=== PATIENT | female | born 1990 | race Caucasian/White ===

== ENCOUNTER 2019-07-05 16:57 | Emergency (ER) | payer MEDICAID ==
--- NOTE | 2019-07-05 18:13 | ER Document Report ---
ED Medical Screen (RME) - General Chief Complaint: Vaginal Bleeding Stated Complaint: LOW BACK PAIN Time Seen by Provider: 07/05/19 18:08 Mode of Arrival: Ambulatory Information source: Patient Notes: 28-year-old female presented to ED for complaint of diarrhea for dizziness fatigue and sometimes abdominal pain. She has been having abnormal vaginal bleeding for about a year she states she is not bleeding at this time. She was sent over here by her primary care doctor for a hemoglobin of 7.9. She states that the REPROGRAPHICS TECHNICIAN did a hemoglobin yesterday was 7.5. She was instructed to follow-up with her primary care. She states she is having severe dizziness and fatigue at this time. Primary care called and sent patient to the emergency room for evaluation and treatment. I have greeted and performed a rapid initial assessment of this patient. A comprehensive ED assessment and evaluation of the patient, analysis of test results and completion of medical decision making process will be conducted by an additional ED providers. - Related Data Allergies/Adverse Reactions: cephalexin Allergy (Verified 07/05/19 18:06) Past Medical History - Social History Frequency of alcohol use: None Drug Abuse: None Physical Exam - Vital signs Vitals: Temp Pulse Resp BP Pulse Ox 98.8 F 110 H 18 154/92 H 100 07/05/19 16:59 07/05/19 16:59 07/05/19 16:59 07/05/19 16:59 07/05/19 16:59 Course - Vital Signs Vital signs: Temp Pulse Resp BP Pulse Ox 98.8 F 110 H 18 154/92 H 100 07/05/19 18:07 07/05/19 16:59 07/05/19 16:59 07/05/19 16:59 07/05/19 16:59
[2019-07-05 18:47] LABS: AMORPHOUS SEDIMENT,URINE 1+ /HPF; APPEARANCE,URINE TURBID; BILIRUBIN,URINE NEGATIVE (NEGATIVE); COLOR,URINE YELLOW; GLUCOSE, URINE NEGATIVE (NEGATIVE); KETONES,URINE NEGATIVE (NEGATIVE); LEUKOCYTE ESTERASE,URINE TRACE (NEGATIVE); NITRITE,URINE NEGATIVE (NEGATIVE); PROTEIN,URINE 30 mg/dL (NEGATIVE); URINE SPECIFIC GRAVITY 1.026; UROBILINOGEN,URINE NEGATIVE mg/dL (<2.0)
[2019-07-05 18:49] LABS: ABSOLUTE EOSINOPHILS # (AUTO) 0.1 10^3/uL (0.0-0.6); ABSOLUTE LYMPHOCYTES (AUTO) 1.6 10^3/uL (0.5-4.7); ABSOLUTE MONOCYTES (AUTO) 0.3 10^3/uL (0.1-1.4); ABSOLUTE NEUT (AUTO) 4.6 10^3/uL (1.7-8.2); BASOPHILS % (AUTO) 0.4 % (0-2); EOSINOPHILS % (AUTO) 1.6 % (0-6); HEMATOCRIT 24.7 % (36.0-47.0); LYMPHOCYTES % (AUTO) 23.6 % (13-45); MEAN CORPUSCULAR HEMOGLOBIN 18.6 pg (27.0-33.4); MEAN CORPUSCULAR HGB CONC 30.6 g/dL (32.0-36.0); MONOCYTES % (AUTO) 4.4 % (3-13); PLATELET COUNT 298 10^3/uL (150-450); RED BLOOD COUNT 4.08 10^6/uL (3.72-5.28); RED CELL DISTRIBUTION WIDTH 20.5 % (11.5-14.0); TOTAL CELLS COUNTED % (AUTO) 100 %; WHITE BLOOD COUNT 6.6 10^3/uL (4.0-10.5)
[2019-07-05 18:53] LABS: HEMOGLOBIN 7.6 g/dL (12.0-15.5); MEAN CORPUSCULAR VOLUME 61 fl (80-97)
[2019-07-05 19:10] LABS: ANISOCYTOSIS 2+; HYPOCHROMASIA 2+; PLATELET COMMENT ADEQUATE; PLATELET LARGE PRESENT; POIKILOCYTOSIS SLIGHT; POLYCHROMASIA SLIGHT
[2019-07-05 19:53] LABS: ALBUMIN 4.2 g/dL (3.5-5.0); ALKALINE PHOSPHATASE 85 U/L (38-126); ANION GAP 7 (5-19); ASPARTATE AMINO TRANSFERASE 20 U/L (14-36); BILIRUBIN,TOTAL 0.7 mg/dL (0.2-1.3); BLOOD UREA NITROGEN 12 mg/dL (7-20); CALCIUM 9.2 mg/dL (8.4-10.2); CARBON DIOXIDE 29 mmol/L (22-30); CHLORIDE 101 mmol/L (98-107); GLUCOSE 106 mg/dL (75-110); POTASSIUM 4.1 mmol/L (3.6-5.0); TOTAL PROTEIN 7.7 g/dL (6.3-8.2)
[2019-07-05] MEDS ORDERED: NORMAL SALINE 250 ML IV PRN ×2 (20:52)
--- NOTE | 2019-07-05 20:57 | ER Document Report ---
ED GI/ - General Chief Complaint: Vaginal Bleeding Stated Complaint: LOW BACK PAIN Time Seen by Provider: 07/05/19 18:08 Mode of Arrival: Ambulatory Information source: Patient Notes: 28-year-old female presenting for vaginal bleeding and low hemoglobin per her primary care provider. Has had heavy, irregular periods since the of her daughter 1 year ago. Was seen by SALVAGE MACHINE OPERATOR 3 weeks ago, prescribed control, multivitamins, and iron and had transvaginal ultrasound performed which noted a left ovarian cyst. Patient reports that her hemoglobin was low at the SALVAGE MACHINE OPERATOR visit. Hemoglobin continued to also be low at most recent primary care visit who recommended she come to the ER for transfusion today. Patient picked up the control norethindrone yesterday and has only taken 1 dose of medication. Reports her periods have become lab scientist than what they previously were in the last few days. Continues to have nightly heavy bleeding. Is bleeding through a pad or tampon in 2 hours when does have vaginal bleeding, reports occassional small clots. Denies lightheadedness, fevers, chills, dizziness, shortness of breath, chest pain, pain with urination or flank pain. Does note bilateral lower abdominal pain with deep palpation. Per the triage provider she did have dizziness and fatigue. She has a history of hypertension and preeclampsia. TRAVEL OUTSIDE OF THE [place] IN LAST 30 DAYS: No - HPI Pain Level: 0 Location: Other - left and right lower abdomen LMP: unknown : 2 Para: 1 Abortions: 1 - Related Data Allergies/Adverse Reactions: cephalexin Allergy (Verified 07/05/19 18:06) Past Medical History - General Information source: Patient - History and social history former smoker - Social History Smoking Status: Former Smoker Frequency of alcohol use: Occasional Drug Abuse: None Lives with: Spouse/Significant other Family History: DM - Sometimes the Patient has homicidal ideation: No - Past Medical History Cardiac Medical History: Reports: Hx Hypertension Pulmonary Medical History: Reports: None EENT Medical History: Reports: None Neurological Medical History: Reports: None - We Endocrine Medical History: Reports: None Renal/ Medical History: Reports: Hx Ovarian Cysts Review of Systems - Review of Systems Constitutional: No symptoms reported EENT: No symptoms reported Cardiovascular: No symptoms reported, See HPI Respiratory: No symptoms reported Gastrointestinal: See HPI Genitourinary: No symptoms reported Female Genitourinary: See HPI Musculoskeletal: No symptoms reported Skin: No symptoms reported Hematologic/Lymphatic: No symptoms reported Neurological/Psychological: No symptoms reported Physical Exam - Vital signs Vitals: Temp Pulse Resp BP Pulse Ox 98.8 F 110 H 18 154/92 H 100 07/05/19 16:59 07/05/19 16:59 07/05/19 16:59 07/05/19 16:59 07/05/19 16:59 Interpretation: Hypertensive, Tachycardic - General General appearance: Appears well, Alert In distress: None - HEENT Head: Normocephalic, Atraumatic Eyes: Normal Conjunctiva: Normal - Respiratory Respiratory status: No respiratory distress Chest status: Nontender Breath sounds: Normal - Cardiovascular Rhythm: Regular Heart sounds: Normal auscultation Murmur: No Friction rub: No Jorge Alberto's crunch: No - Abdominal Inspection: Normal Distension: No distension Bowel sounds: Normal Tenderness: Tender - on deep palpation to bilateral lower quadrants Organomegaly: No organomegaly - Psychological Associated symptoms: Normal affect, Normal mood - Skin Skin Temperature: Warm Skin Moisture: Dry Skin Color: Normal Course - Re-evaluation Re-evalutation: 07/05/19 22:07 Transvaginal ultrasound shows a 3 cm simple left ovarian cyst 07/06/19 04:51 Repeat cbc resulted at 7.3. Rectal and speculum exam performed to evaluate for possible bleed, Rectal exam showed no brbpr, no occult blood. Speculum exam machelle wed no vaginal bleeding. 07/06/19 05:39 07/06/19 05:40 Repeat CBC was 8.3. The CBC was repeated due to concern for lab area of prior hemoglobin reading of 7.3 after 1 unit of blood transfusion. 07/06/19 05:44 Patient does report improvement in symptoms. Discussed the importance of follow-up with PCM in 48 hours for repeat hemoglobin testing. Patient continue oral contraceptive prescribed by SALVAGE MACHINE OPERATOR and iron supplementation. Also discussed with patient the importance of following up with the ER if she develops worsening symptoms or the development of new symptoms to include shortness of breath, chest pain or worsening fatigue. Patient acknowledges and verbalizes understanding of instructions. - Vital Signs Vital signs: Temp Pulse Resp BP Pulse Ox 98.4 F 88 17 122/77 95 07/06/19 01:29 07/06/19 01:29 07/06/19 03:01 07/06/19 03:01 07/06/19 03:01 - Laboratory Result Diagrams: 07/06/19 05:05 07/05/19 14:24 Laboratory results interpreted by me: 07/05/19 07/05/19 07/05/19 14:24 14:24 14:24 Hgb 7.6 L Hct 24.7 L MCV 61 L MCH 18.6 L MCHC 30.6 L RDW 20.5 H Sodium 136.9 L Urine Protein Ur Leukocyte Esterase Urine Ascorbic Acid Crossmatch See Detail 07/05/19 07/06/19 07/06/19 17:02 03:54 05:05 Hgb 7.3 L 8.3 L Hct 23.4 L 27.1 L MCV 62 L 62 L MCH 19.3 L 18.9 L MCHC 31.3 L 30.6 L RDW 21.2 H 20.8 H Sodium Urine Protein 30 H Ur Leukocyte Esterase TRACE H Urine Ascorbic Acid 20 H Crossmatch Discharge - Discharge Clinical Impression: Symptomatic anemia Condition: Stable Disposition: HOME, SELF-CARE Additional Instructions: Patient to schedule follow-up with PCM in 48 hours for repeat CBC to reevaluate hemoglobin levels. Return precautions to include chest pain, shortness of breath, worsening fatigue or development of new symptoms. Patient to continue taking control and iron as prescribed by her SALVAGE MACHINE OPERATOR. Recommend patient also schedule follow-up with SALVAGE MACHINE OPERATOR.
--- NOTE | 2019-07-05 21:54 | RADIOLOGY REPORT (SQ) ---
US PELVIS EXAM DATE: 07/05/2019 8:51 PM CDT HISTORY: Irregular vaginal bleeding for one year. COMPARISON: None. TECHNIQUE: Grayscale, color Doppler, and spectral Doppler ultrasound images of the pelvis were obtained. FINDINGS: The uterus is anteverted and measures 9.4 x 5.3 x 6.4 cm. The endometrium is 1.9 cm in thickness. No intrauterine fibroids are seen. The cervix is 3 cm in length. Both ovaries are normal in size and contain normal follicles, with the right ovary measuring 4.3 x 2.4 x 2.8 cm, and the left ovary measuring 4.3 x 2.1 x 2.8 cm. Normal color Doppler blood flow is seen in both ovaries. There is a 3 cm left para-ovarian cyst. No free fluid is seen. IMPRESSION: 3.0 cm simple left ovarian cyst. No follow-up imaging is recommended. Reference: Radiology 2010 Oct;256(3):947-57
[2019-07-06 04:12] LABS: ABSOLUTE BASOPHILS # (AUTO) 0.1 10^3/uL (0.0-0.2); ABSOLUTE EOSINOPHILS # (AUTO) 0.1 10^3/uL (0.0-0.6); ABSOLUTE LYMPHOCYTES (AUTO) 1.8 10^3/uL (0.5-4.7); ABSOLUTE MONOCYTES (AUTO) 0.4 10^3/uL (0.1-1.4); ABSOLUTE NEUT (AUTO) 3.8 10^3/uL (1.7-8.2); BASOPHILS % (AUTO) 0.9 % (0-2); EOSINOPHILS % (AUTO) 1.8 % (0-6); HEMATOCRIT 23.4 % (36.0-47.0); LYMPHOCYTES % (AUTO) 29.5 % (13-45); MEAN CORPUSCULAR HEMOGLOBIN 19.3 pg (27.0-33.4); MEAN CORPUSCULAR HGB CONC 31.3 g/dL (32.0-36.0); MEAN CORPUSCULAR VOLUME 62 fl (80-97); MONOCYTES % (AUTO) 6.2 % (3-13); PLATELET COUNT 260 10^3/uL (150-450); RED CELL DISTRIBUTION WIDTH 21.2 % (11.5-14.0); SEGMENTED NEUTROPHILS % (AUTO) 61.6 % (42-78); TOTAL CELLS COUNTED % (AUTO) 100 %; WHITE BLOOD COUNT 6.2 10^3/uL (4.0-10.5)
[2019-07-06 04:19] LABS: HEMOGLOBIN 7.3 g/dL (12.0-15.5)
[2019-07-06 04:35] LABS: ANISOCYTOSIS 3+; HYPOCHROMASIA 2+; PLATELET COMMENT ADEQUATE
[2019-07-06 04:37] LABS: BURR CELLS SLIGHT; OVALOCYTES SLIGHT; POIKILOCYTOSIS SLIGHT; POLYCHROMASIA SLIGHT
[2019-07-06 05:23] LABS: HEMATOCRIT 27.1 % (36.0-47.0); HEMOGLOBIN 8.3 g/dL (12.0-15.5); MEAN CORPUSCULAR HEMOGLOBIN 18.9 pg (27.0-33.4); MEAN CORPUSCULAR HGB CONC 30.6 g/dL (32.0-36.0); MEAN CORPUSCULAR VOLUME 62 fl (80-97); PLATELET COUNT 270 10^3/uL (150-450); RED BLOOD COUNT 4.37 10^6/uL (3.72-5.28); RED CELL DISTRIBUTION WIDTH 20.8 % (11.5-14.0); WHITE BLOOD COUNT 5.7 10^3/uL (4.0-10.5)
[2019-07-06 06:19] VITALS: BP 132/72
[2019-07-06 11:27] LABS: PATH REVIEW PATHOLOGIST REVIEWED
== END 2019-07-06 06:17 | disposition home or self-care (01) ==
LOC: ER 16:57
DX: D64.9 Anemia, unspecified (principal); N93.9 Abnormal uterine and vaginal bleeding, unspecified; M54.5 Low back pain; R10.31 Right lower quadrant pain; R10.32 Left lower quadrant pain; Z88.1 Allergy status to other antibiotic agents; Z87.891 Personal history of nicotine dependence; I10 Essential (primary) hypertension
CPT/HCPCS: 99284; 86900; 86901; 36415; 36430; 86850; 83690; 84703; 85025; 82270; 80053; 81001; 86920; 76830; 93976; P9016; J7050

== ENCOUNTER 2019-07-10 13:41 | Emergency (ER) | payer MEDICAID ==
[2019-07-10 14:28] LABS: ABSOLUTE BASOPHILS # (AUTO) 0.1 10^3/uL (0.0-0.2); ABSOLUTE EOSINOPHILS # (AUTO) 0.1 10^3/uL (0.0-0.6); ABSOLUTE LYMPHOCYTES (AUTO) 1.2 10^3/uL (0.5-4.7); ABSOLUTE MONOCYTES (AUTO) 0.3 10^3/uL (0.1-1.4); ABSOLUTE NEUT (AUTO) 4.7 10^3/uL (1.7-8.2); BASOPHILS % (AUTO) 0.9 % (0-2); EOSINOPHILS % (AUTO) 1.2 % (0-6); HEMOGLOBIN 9.2 g/dL (12.0-15.5); LYMPHOCYTES % (AUTO) 18.5 % (13-45); MEAN CORPUSCULAR HEMOGLOBIN 19.4 pg (27.0-33.4); MEAN CORPUSCULAR HGB CONC 30.7 g/dL (32.0-36.0); MONOCYTES % (AUTO) 4.8 % (3-13); PLATELET COUNT 284 10^3/uL (150-450); RED BLOOD COUNT 4.75 10^6/uL (3.72-5.28); RED CELL DISTRIBUTION WIDTH 21.8 % (11.5-14.0); SEGMENTED NEUTROPHILS % (AUTO) 74.6 % (42-78); TOTAL CELLS COUNTED % (AUTO) 100 %; WHITE BLOOD COUNT 6.3 10^3/uL (4.0-10.5)
[2019-07-10 14:37] LABS: MEAN CORPUSCULAR VOLUME 63 fl (80-97)
[2019-07-10 14:46] LABS: ALBUMIN 4.3 g/dL (3.5-5.0); ALKALINE PHOSPHATASE 80 U/L (38-126); ANION GAP 9 (5-19); ASPARTATE AMINO TRANSFERASE 31 U/L (14-36); BILIRUBIN,TOTAL 0.8 mg/dL (0.2-1.3); BLOOD UREA NITROGEN 13 mg/dL (7-20); CALCIUM 8.9 mg/dL (8.4-10.2); CARBON DIOXIDE 25 mmol/L (22-30); CHLORIDE 104 mmol/L (98-107); GLUCOSE 109 mg/dL (75-110); POTASSIUM 4.1 mmol/L (3.6-5.0); TOTAL PROTEIN 7.9 g/dL (6.3-8.2)
[2019-07-10 14:56] LABS: POLYCHROMASIA 1+
[2019-07-10 14:57] LABS: ANISOCYTOSIS 3+; HYPOCHROMASIA 2+; OVALOCYTES 1+; POIKILOCYTOSIS SLIGHT; TEAR DROP CELLS SLIGHT
[2019-07-10 14:58] LABS: PLATELET COMMENT ADEQUATE
--- NOTE | 2019-07-10 15:58 | ER Document Report ---
ED GI/ - General Chief Complaint: Vaginal Bleeding Stated Complaint: VAGINAL BLEEDING Time Seen by Provider: 07/10/19 13:47 Primary Care Provider: [facility] [Provider [facility]] - Follow up as needed [facility] [Provider Group] - Follow up as needed Notes: Patient is a 28-year-old female who presents to the emergency department with a chief complaint of vaginal bleeding and patient states that her vaginal bleeding has been inconsistent for the past year. Patient was seen here in the emergency department 5 days ago for a low hemoglobin. She started control 6 days ago. Patient states that her bleeding is still irregular. According to her medical records, she had a 3 cm ovarian cyst and no follow-up imaging was recommended at that time. Patient denies any other past medical history. Patient is not able to give me a clear last menstrual cycle and states, "I'm just not good at tracking that stuff." TRAVEL OUTSIDE OF THE [place] IN LAST 30 DAYS: No - Related Data Allergies/Adverse Reactions: cephalexin Allergy (Verified 07/10/19 14:37) Past Medical History - Social History Smoking Status: Former Smoker Frequency of alcohol use: None Drug Abuse: Marijuana Family History: DM - Sometimes the Patient has homicidal ideation: No - Past Medical History Cardiac Medical History: Reports: Hx Hypertension Renal/ Medical History: Reports: Hx Ovarian Cysts Review of Systems - Review of Systems Notes: REVIEW OF SYSTEMS: CONSTITUTIONAL : Denies recent illness. Denies recent unintentional weight loss. Denies fever, chills, or sweats. EENT: Denies eye, ear, throat, or mouth pain, discharge, or symptoms. Denies nasal or sinus congestion. CARDIOVASCULAR: Denies chest pain. RESPIRATORY: Denies shortness of breath, cough, congestion, difficulty breathing, or wheezing. GASTROINTESTINAL: Denies nausea, vomiting, and diarrhea. Denies abdominal pain. Denies constipation. Last BM: GENITOURINARY: Denies difficulty urinating, burning, blood in urine, urgency or frequency. FEMALE GENITOURINARY: See HPI. MUSCULOSKELETAL: Denies neck and back pain. Denies joint pain or swelling. SKIN: Denies rash, itchiness, or lesions HEMATOLOGIC : Denies easy bruising or bleeding. LYMPHATIC: Denies swollen, painful, enlarged glands. NEUROLOGICAL: Denies no numbness or tingling denies weakness. Denies headache. Denies altered mental status. Denies alteration in speech. PSYCHIATRIC: Denies stress, anxiety, alteration in sleep patterns, or depression. All other systems reviewed and negative. Physical Exam - Vital signs Vitals: Temp 98.5 F 07/10/19 13:41 - Notes Notes: PHYSICAL EXAMINATION: GENERAL: Appears well, healthy, well-nourished, no acute distress. HEAD: Normocephalic, atraumatic. EYES: PERRL, conjunctiva normal, all extraocular movements intact, sclera nonicteric ENT: Moist mucous membranes. NECK: Supple, no noticeable swelling, redness, rash. Normal range of motion. LUNGS: Equal breath sounds bilaterally and clear to auscultation. No wheezes rales or rhonchi. CARDIOVASCULAR: S1-S2, regular rate, regular rhythm. Radial pulses 2+, normal. ABDOMEN: Normoactive bowel sounds. Soft, rounded, nontender, no guarding, no rebound tenderness, and no masses palpated. EXTREMITIES: Normal strength and range of motion, no pitting or edema. No cyanosis. NEUROLOGICAL: Moves all extremities upon command. Strength 5/5 in all extremi ties. PSYCH: Normal mood, normal affect. SKIN: Warm, dry. No rash, lesions, ulcerations noted. Normal skin turgor. Course - Re-evaluation Re-evalutation: 07/10/19 16:09 Hematology shows an anemia with a hemoglobin of 9.2 and hematocrit of 30.0. Her last labs were drawn on July 05, 4 days ago. Patient's transvaginal ultrasound from 4 days ago shows that she had an ovarian cyst. There were no recommendations on a follow-up ultrasound. Patient has follow-up with INTERNET SALES ASSOCIATE in 2 weeks. I advised her to continue her control. I also educated her that it may take a few cycles of control to get her regular on her menstrual cycle. She is in agreement with this plan. Follow-up precautions were given. Verbal discharge instructions were given to the patient. They verbalized understanding. They are stable for discharge. - Vital Signs Vital signs: Temp Pulse Resp BP Pulse Ox 98.9 F 88 16 133/76 H 100 07/10/19 16:22 07/10/19 16:22 07/10/19 16:22 07/10/19 16:22 07/10/19 16:22 - Laboratory Result Diagrams: 07/10/19 14:14 07/10/19 14:14 Laboratory results interpreted by me: 07/10/19 14:14 Hgb 9.2 L Hct 30.0 L MCV 63 L MCH 19.4 L MCHC 30.7 L RDW 21.8 H Discharge - Discharge Clinical Impression: Vaginal bleeding Anemia Qualifiers: Anemia type: unspecified type Qualified Code(s): D64.9 - Anemia, unspecified Condition: Stable Disposition: HOME, SELF-CARE Additional Instructions: You were seen today in the emergency department for vaginal bleeding. Your labs are normal this time. Please continue to take your control. As discussed, it may take a few cycles for your menstrual cycle to be normal. Please continue your follow-up with INTERNET SALES ASSOCIATE. Follow-up with your primary care provider in regards to this visit. Referrals: [facility] [Provider Group] - Follow up as needed [facility] [Provider Group] - Follow up as needed
[2019-07-10 16:24] VITALS: BP 133/76
== END 2019-07-10 16:25 | disposition home or self-care (01) ==
LOC: ER 13:41
DX: N93.8 Other specified abnormal uterine and vaginal bleeding (principal); D64.9 Anemia, unspecified; I10 Essential (primary) hypertension
CPT/HCPCS: 36415; 80053; 84703; 85025; 99284

== ENCOUNTER 2019-08-12 05:20 | Day surgery (SDC) | payer MEDICAID ==
[2019-08-09 09:48] LABS: APPEARANCE,URINE CLOUDY; BILIRUBIN,URINE NEGATIVE (NEGATIVE); GLUCOSE, URINE NEGATIVE (NEGATIVE); KETONES,URINE NEGATIVE (NEGATIVE); LEUKOCYTE ESTERASE,URINE MODERATE (NEGATIVE); NITRITE,URINE NEGATIVE (NEGATIVE); PROTEIN,URINE 30 mg/dL (NEGATIVE); URINE SPECIFIC GRAVITY 1.024; UROBILINOGEN,URINE NEGATIVE mg/dL (<2.0)
[2019-08-09 09:49] LABS: COLOR,URINE YELLOW
[2019-08-09 10:07] LABS: ANION GAP 9 (5-19); BLOOD UREA NITROGEN 12 mg/dL (7-20); CALCIUM 9.3 mg/dL (8.4-10.2); CARBON DIOXIDE 28 mmol/L (22-30); CHLORIDE 104 mmol/L (98-107); GLUCOSE 123 mg/dL (75-110); POTASSIUM 3.8 mmol/L (3.6-5.0)
[2019-08-09 11:18] LABS: HEMATOCRIT 29.6 % (36.0-47.0); HEMOGLOBIN 9.1 g/dL (12.0-15.5); MEAN CORPUSCULAR HEMOGLOBIN 20.6 pg (27.0-33.4); MEAN CORPUSCULAR HGB CONC 30.7 g/dL (32.0-36.0); PLATELET COUNT 319 10^3/uL (150-450); RED BLOOD COUNT 4.41 10^6/uL (3.72-5.28); RED CELL DISTRIBUTION WIDTH 23.4 % (11.5-14.0); WHITE BLOOD COUNT 4.4 10^3/uL (4.0-10.5)
[2019-08-09 11:20] LABS: MEAN CORPUSCULAR VOLUME 67 fl (80-97)
[~2019-08-12 05:20] MED LIST: CLINDAMYCIN 600 MG/D5W RTU 600 MG/50 ML RTUPB IV ONE; CLINDAMYCIN 600 MG/D5W RTU 600 MG/50 ML RTUPB IV PRN; LACTATED RINGERS 1000 ML IV PRN; LIDOCAINE 0.5% INJ-PF (5 MG/ML) 50 ML SDV SUBCUT PRN
[2019-08-12] MEDS ORDERED: ONDANSETRON HCL INJ/PF 4 MG/2 ML SDV ONE (06:41)
[2019-08-12] MEDS ORDERED: FENTANYL CITRATE INJ/PF 100 MCG/2 ML AMPUL ONE (06:41)
[2019-08-12] MEDS ORDERED: MIDAZOLAM 2 MG/2 ML INJ ONE (06:41)
[2019-08-12] MEDS ORDERED: PROPOFOL INJ 200 MG/20 ML VIAL IV ONE (06:41)
[2019-08-12] MEDS ORDERED: KETOROLAC TROMETHAMINE 60 MG/2 ML SDV ONE (06:41)
[2019-08-12] MEDS ORDERED: LIDOCAINE 1% INJ-PF (10 MG/ML) 30 ML SDV ONE (07:23)
[2019-08-12] MEDS ORDERED: FENTANYL CITRATE INJ/PF 100 MCG/2 ML AMPUL IV PRN ×3 (07:41)
[2019-08-12] MEDS ORDERED: DIPHENHYDRAMINE HCL 50 MG/ML VIAL IV PRN (07:41)
[2019-08-12] MEDS ORDERED: OXYCODONE-ACETAMINOPHEN 5-325 MG TABLET PO PRN (07:41)
[2019-08-12] MEDS ORDERED: PROMETHAZINE HCL INJ 25 MG/1 ML VIAL IV PRN (07:41)
[2019-08-12 09:31] VITALS: BP 120/68
--- NOTE | 2019-08-23 12:17 | PDOC DISCHARGE SUMMARY ---
Impression - Admit/DC Date/PCP Admission Date/Primary Care Provider: MISSY MAIER DO Discharge Date: 08/12/19 - Additional Information Discharge Diet: As Tolerated Referrals: CEE YUN MD [EMERITUS] - (Follow up as scheduled) Home Medications: Hydrocodone/Acetaminophen [[place] 5-325 Tablet] 1 each PO ASDIR PRN 08/09/19 Iron,Carb/Vit C/Vit B12/Folic [Iron 100 Plus Tablet] 1 each PO ASDIR PRN 08/09/19 Ondansetron HCl [Zofran] 8 mg PO ASDIR PRN 08/09/19 Oxycodone HCl 5 mg PO ASDIR PRN 08/09/19 Vit,Calc78/Iron/Folic [Prenatabs Fa Tablet] 1 each PO ASDIR PRN 08/09/19 History of Present Illiness History of Present Illness: KATELYN ELIZALDE is a 29 year old female Physical Exam - Physical Exam Vital Signs: Temp Pulse Resp BP Pulse Ox 97.2 F 76 18 120/68 100 08/12/19 09:25 08/12/19 09:25 08/12/19 09:25 08/12/19 09:25 08/12/19 09:25 Results Laboratory Results: WBC 4.4 10^3/uL (4.0-10.5) 08/09/19 10:55 RBC 4.41 10^6/uL (3.72-5.28) 08/09/19 10:55 Hgb 9.1 g/dL (12.0-15.5) L 08/09/19 10:55 Hct 29.6 % (36.0-47.0) L 08/09/19 10:55 MCV 67 fl (80-97) L D 08/09/19 10:55 MCH 20.6 pg (27.0-33.4) L 08/09/19 10:55 MCHC 30.7 g/dL (32.0-36.0) L 08/09/19 10:55 RDW 23.4 % (11.5-14.0) H 08/09/19 10:55 Plt Count 319 10^3/uL (150-450) 08/09/19 10:55 Platelet Estimate Cancelled 08/09/19 08:40 Sodium 140.7 mmol/L (137-145) 08/09/19 08:40 Potassium 3.8 mmol/L (3.6-5.0) 08/09/19 08:40 Chloride 104 mmol/L (98-107) 08/09/19 08:40 Carbon Dioxide 28 mmol/L (22-30) 08/09/19 08:40 Anion Gap 9 (5-19) 08/09/19 08:40 BUN 12 mg/dL (7-20) 08/09/19 08:40 Creatinine 0.79 mg/dL (0.52-1.25) 08/09/19 08:40 Est GFR ( Amer) > 60 (>60) 08/09/19 08:40 Est GFR (MDRD) Non-Af > 60 (>60) 08/09/19 08:40 Glucose 123 mg/dL (75-110) H 08/09/19 08:40 Calcium 9.3 mg/dL (8.4-10.2) 08/09/19 08:40 Urine Color YELLOW 08/09/19 08:30 Urine Appearance CLOUDY 08/09/19 08:30 Urine pH 5.0 (5.0-9.0) 08/09/19 08:30 Ur Specific [place] 1.024 08/09/19 08:30 Urine Protein 30 mg/dL (NEGATIVE) H 08/09/19 08:30 Urine Glucose (UA) NEGATIVE mg/dL (NEGATIVE) 08/09/19 08:30 Urine Ketones NEGATIVE mg/dL (NEGATIVE) 08/09/19 08:30 Urine Blood NEGATIVE (NEGATIVE) 08/09/19 08:30 Urine Nitrite NEGATIVE (NEGATIVE) 08/09/19 08:30 Urine Bilirubin NEGATIVE (NEGATIVE) 08/09/19 08:30 Urine Urobilinogen NEGATIVE mg/dL (<2.0) 08/09/19 08:30 Ur Leukocyte Esterase MODERATE (NEGATIVE) H 08/09/19 08:30 Urine WBC (Auto) 27 /HPF 08/09/19 08:30 Urine RBC (Auto) 2 /HPF 08/09/19 08:30 U Hyaline Cast (Auto) 1 /LPF 08/09/19 08:30 Squamous Epi Cells Auto 18 /HPF 08/09/19 08:30 Urine Mucus (Auto) MOD /LPF 08/09/19 08:30 Urine Ascorbic Acid 40 (NEGATIVE) H 08/09/19 08:30 Urine HCG, Qual NEGATIVE (NEGATIVE) 08/12/19 05:20 COVID-19 Source NASOPHARYNGEAL 08/09/19 08:40 COVID-19 (ESME) NOT DETECTED 08/09/19 08:40 Slides for Path Review Cancelled 08/09/19 08:40 Blood Type A NEGATIVE 08/11/19 09:40 Antibody Screen NEGATIVE 08/11/19 09:40 Stroke Is this a Stroke Patient?: No Acute Heart Failure - Is this a Heart Failure Patient?: No
--- NOTE | 2019-08-23 12:20 | Operative Report ---
Operative Report DATE OF SURGERY: 08/12/19 PREOPERATIVE DIAGNOSIS: menorrhgia POSTOPERATIVE DIAGNOSIS: same OPERATION: hysteroscopic polypectomy with myosure SURGEON: CEE YUN ANESTHESIA: LMAC TISSUE REMOVED OR ALTERED: polyp COMPLICATIONS: none ESTIMATED BLOOD LOSS: nil INTRAOPERATIVE FINDINGS: endometrial polyps PROCEDURE: after surgical time out, cervix dialated to admit operative hysteroscope. Operative resection done without difficulty to excise lesions in toto. photos take. pataient awakened counts correct
== END 2019-08-12 09:25 | disposition home or self-care (01) ==
LOC: OROUT 05:20
PROVIDERS: ATTEND Specialist
DX: N84.0 Polyp of corpus uteri (principal); N83.202 Unspecified ovarian cyst, left side; N92.0 Excessive and frequent menstruation with regular cycle; I10 Essential (primary) hypertension; Z88.1 Allergy status to other antibiotic agents; D64.9 Anemia, unspecified; E66.9 Obesity, unspecified
CPT/HCPCS: 86900; 86901; 36415 ×2; 86850; 85027; 87635; 81025; 80048; 81001; 88305 ×2; 00952; 58558; J2250; S0077; J1885; J3010; J3490; J2405; J2704; C9803; 952